=== PATIENT | male | born 1995 | race Caucasian/White ===

== ENCOUNTER 2017-08-29 02:13 | Emergency (ER) | payer OTHER ==
[2017-08-29 03:23] LABS: BLOOD UREA NITROGEN 11 mg/dl (7-18); CALCIUM 8.7 mg/dl (8.5-10.1); CARBON DIOXIDE 23 mmol/L (21-32); CREATININE 0.95 mg/dl (0.60-1.40); GLUCOSE 150 mg/dl (70-99); POTASSIUM 3.3 mmol/L (3.5-5.1); SODIUM 140 mmol/L (136-145)
[2017-08-29] MEDS ORDERED: POTASSIUM CHLORIDE 10 MEQ TABCR PO STA (03:37)
[2017-08-29] MEDS ORDERED: POTASSIUM CHLORIDE 10 MEQ TABCR ONE (10:11)
[2017-08-29 10:26] VITALS: BP 135/43; PULSE 81; TEMP 36.4; O2SAT 95
--- NOTE | 2017-08-29 23:09 | EMERGENCY ROOM VISIT NOTE ---
History First contact with patient: 02:16 Chief Complaint: ALCOHOL OVERDOSE Stated Complaint: ALCOHOL OVERDOSE Nursing Triage Summary: Per EMS, pt started drinking at 1700. Later this evening he was vomiting in his sleep, friends called EMS. Pt became hostile with EMS and was sedated with 5 mg Versed. Pt sleeping upon arrival. No reported trauma. History of Present Illness The patient is a 22 year old male who presents to the Emergency Room with complaints of alcohol intoxication who was found vomiting by the roommates who summoned EMS. Patient is passed out and unable to obtain history. History is obtained from EMS. EMS states that the roommates found him vomiting and they summoned EMS. EMS states he became combative and they gave him 5 mg of Versed IV. They were informed that he has been drinking since 5 PM. No known drug use. No known injury. Review of Systems Unable to obtain secondary to altered mental status from alcohol intoxication Past Medical/Surgical History Unable to obtain secondary to altered mental status from alcohol intoxication Social History Alcohol Use: occasionally Marital Status: single Current/Historical Medications Unable to Obtain Active Prescriptions or Reported Meds Physical Exam Vital Signs Date Time Temp Pulse Resp B/P (MAP) Pulse Ox O2 Delivery O2 Flow Rate FiO2 08/29/17 10:26 36.4 81 17 135/43 95 08/29/17 10:01 135/43 08/29/17 09:35 81 17 95 08/29/17 09:30 127/64 08/29/17 09:05 74 18 95 08/29/17 09:00 134/63 08/29/17 08:45 89 18 96 08/29/17 08:30 113/72 08/29/17 08:15 72 16 96 08/29/17 08:00 120/54 08/29/17 07:45 76 17 08/29/17 07:30 118/54 08/29/17 07:15 75 15 08/29/17 07:01 124/69 08/29/17 06:45 68 18 93 08/29/17 06:18 72 08/29/17 06:01 115/66 08/29/17 05:59 62 18 96 08/29/17 05:31 120/61 08/29/17 05:29 76 19 94 08/29/17 05:24 100 15 94 08/29/17 04:54 73 16 08/29/17 04:24 68 95 08/29/17 03:54 70 15 96 08/29/17 03:24 63 18 95 08/29/17 02:54 67 19 95 08/29/17 02:26 64 19 91 Room Air 08/29/17 02:24 64 19 91 08/29/17 02:21 81 08/29/17 02:21 Room Air 08/29/17 02:19 138/79 08/29/17 02:18 80 23 138/79 95 Room Air Physical Exam PHYSICAL EXAM: VITALS: Vitals are noted on the nurse's note and reviewed by myself. Vital signs stable. GENERAL: White male with EtOH odor, in no acute distress, nondiaphoretic, well- developed well-nourished. The patient is visibly intoxicated. SKIN: The skin was without obvious lacerations, abrasions, or rashes. There is no tenting of the skin. Capillary reflex less than 2 seconds. HEENT: Normocephalic, atraumatic. PERRLA. EOMI. Conjunctiva with mild injection without icterus. Tympanic membranes without erythema or effusion bilaterally no hemotympanum. External auditory canals are clear. Nares patent bilaterally. No epistaxis. Oropharynx without erythema or exudate. Uvula midline. Oral mucosal moist. No lymphadenopathy. Neck is supple without cervical spine tenderness. HEART: Regular rate and rhythm without murmurs gallops or rubs. Peripheral pulses 2+. LUNGS: Clear to auscultation bilaterally without wheezes, rales or rhonchi. ABDOMEN: Positive bowel sounds x 4. Normal tympanic percussion. Soft, nontender, without masses or organomegaly. MUSCULOSKELETAL: Gross motor function of the upper and lower extremities intact. The patient has a staggering gait. NEUROLOGIC: The patient is visibly intoxicated. Gag reflex intact. Once they were more sober they were alert and oriented to person place and time. Medical Decision & Procedures Laboratory Results 08/29/17 02:21 Test 08/29/17 02:21 Anion Gap 11.0 mmol/L (3-11) Estimated GFR () 131.2 Estimated GFR (Non- 113.2 BUN/Creatinine Ratio 11.1 (10-20) Calcium Level 8.7 mg/dl (8.5-10.1) Ethyl Alcohol mg/dL 323.0 mg/dl (0-3) Medications Administered Medications (Trade) Dose Ordered Sig/Joby Route Start Time Stop Time Status Last Admin Dose Admin Potassium Chloride (Klor-Con M10) 20 meq STK-MED ONCE .ROUTE 08/29/17 10:11 08/29/17 10:12 DC 08/29/17 10:14 20 MEQ ED Course Prior records/ancillary studies reviewed. Triage Nursing notes reviewed. Additional history obtained from EMS. The patient's history was concerning for altered mental status and a possible alcohol overdose. Differential diagnosis: Etiologies such as alcohol intoxication, toxicologic, infection, hypoglycemia, electrolyte abnormalities, cardiac sources, intracerebral event, neurologic, as well as others were entertained. Physical examination: As above. The patient is clinically intoxicated. no trauma noted. ER treatment provided: Monitoring Aspiration precautions The patient was frequently reassessed. Diagnostic interpretation by me: Cardiac monitoring did not reveal any evidence of dysrhythmia. The labs revealed hyperglycemia without DKA. The patient's blood alcohol level was 323 mg/dL. The patient's history was reviewed once they were more coherent and their intoxication cleared. The patient states they have been in good health recently and had no medical complaints. The patient admitted to consuming alcohol. No additional concerning findings were noted. The patient complained of no symptoms to suggest assault. This appears to be consistent with an isolated overdose of alcohol. Patient was informed to have his blood sugar rechecked for possible diabetes and his potassium. This most likely are abnormal secondary to his extreme alcohol intoxication. By the evaluation outlined above emergent etiologies such as trauma, infection, hypoglycemia, electrolyte abnormalities, cardiac sources, intracerebral event, neurologic,as well as others were deemed relatively unlikely. The patient was informed about the findings as listed above. The patient was counseled on the dangers of excessive alcohol use. I gave my usual and customary discussion regarding this issue. All questions were answered and the patient was pleased with the treatment. Return instructions were outlined and the patient was discharged in stable condition once their mental status improved and a safe destination was confirmed. Outpatient prescription management: None Referral: The patient was referred back to their primary care physician for follow-up in 2 to 3 days for a recheck of their current condition. The chart was completed utilizing [employer] voice recognition software. Grammatical errors, random word insertions, pronoun errors, and incomplete sentences are an occassional consequence of this system due to software limitations, ambient noise, and hardware issues. Any formal questions or concerns about the content, text, or information contained within the body of this dictation should be directly addressed to the physician pediatric assistant for clarification. Medical Decision As above Medication Reconcilliation Current Medication List: was personally reviewed by me Blood Pressure Screening Patient's blood pressure: Normal blood pressure Impression Primary Impression: Alcohol overdose Additional Impression: Hypokalemia Departure Information Dispostion Home / Self-Care Condition GOOD Prescriptions Unable to Obtain Active Prescriptions or Reported Meds Referrals No Doctor, Assigned (PCP) Patient Instructions [facility] Additional Instructions Recheck your blood sugar and potassium this week with family care. They were abnormal tonight. This is most likely abnormal secondary to your alcohol overdose. Keep well-hydrated. Tylenol every 6 hours as needed for pain (Maximum 3000 mg Tylenol in 24 hr period). Follow up with family doctor and/or health services as needed. No driving for the next 24 hours. Recommend no alcohol for the next 48 hours and avoid binge drinking in the future. Return to ER sooner for chest pain, abdominal pain, worsening signs or symptoms or as needed. Problem Qualifiers Primary Impression: Alcohol overdose Encounter type: initial encounter Injury intent: accidental or unintentional Qualified Codes: T51.91XA - Toxic effect of unspecified alcohol , accidental (unintentional), initial encounter
== END 2017-08-29 10:27 | disposition home or self-care (01) ==
LOC: C.EDB 02:15
DX: T51.0X1A Toxic effect of ethanol, accidental (unintentional), initial encounter (principal); Y90.8 Blood alcohol level of 240 mg/100 ml or more; E87.6 Hypokalemia